=== PATIENT | male | born 1950 | race Caucasian/White ===

== ENCOUNTER 2024-05-07 05:22 | Emergency (ER) | payer OTHER, SELFPAY ==
[2024-05-07 05:22] VITALS: BMI 29.4
[2024-05-07 05:33] VITALS: BP 138/84
[2024-05-07] MEDS: TYLENOL 1000 MG PO (06:43)
[2024-05-07] MEDS: DECADRON 10 MG PO (06:43)
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
[2024-05-07 07:50] VITALS: BP 124/79
== END 2024-05-07 07:55 | disposition home or self-care (01) ==
LOC: EMR 05:22
PROVIDERS: EMERGENCY PHYSICIAN Emergency Medicine; FAMILY PHYSICIAN Family Medicine
DX: S13.4XXA Sprain of ligaments of cervical spine, initial encounter (principal); V49.40XA Driver injured in collision with unspecified motor vehicles in traffic accident, initial encounter; Y92.410 Unspecified street and highway as the place of occurrence of the external cause; R03.0 Elevated blood-pressure reading, without diagnosis of hypertension; K21.9 Gastro-esophageal reflux disease without esophagitis; E11.9 Type 2 diabetes mellitus without complications; Z86.16 Personal history of COVID-19; Z79.84 Long term (current) use of oral hypoglycemic drugs
CPT/HCPCS: 99284; 72125

== ENCOUNTER → 2025-01-08 07:57 | Outpatient (REF) | payer OTHER, SELFPAY | LOC: HWRAD 07:57 | PROVIDERS: ATTENDING PHYSICIAN Nurse Practitioner Family; FAMILY PHYSICIAN Family Medicine | DX: Z87.891 Personal history of nicotine dependence (principal) | CPT/HCPCS: 71271 ==